=== PATIENT | male | born 1930 | race Caucasian/White ===

== ENCOUNTER 2016-07-24 15:47 | Emergency (ER) | payer MEDICARE, BC ==
[2016-07-24] MEDS ORDERED: 50% Dextrose in Water 50 ML Syringe IVPUSH ONE ×2 (15:55→17:39)
[2016-07-24] MEDS ORDERED: 50% Dextrose in Water 50 ML Syringe ONE (15:57)
[2016-07-24] MEDS ORDERED: Dextrose 5%-0.9% NaCl 1,000 ML IV SCH (16:00)
--- NOTE | 2016-07-24 16:01 | EDM.PDOC ---
ED HPI GENERAL MEDICAL PROBLEM - General Chief Complaint: Neurological Problem Stated Complaint: [facility] Time Seen by Provider: 07/24/16 15:54 Source of Information: Reports: Patient, EMS Notes Reviewed History Limitations: Reports: No Limitations - History of Present Illness INITIAL COMMENTS - FREE TEXT/NARRATIVE: 6-year-old male presents to the ED brought in by helicopter from [facility]. Apparently he was brought in as part of a stroke alert. Patient is conscious and expresses himself fairly well at this time. Blood sugar on scene apparently was 80 and he is a known insulin-dependent diabetic protect 2 diabetes control. He reports he did not eat much for dinner today. Did take his normal insulin in the morning. He states he developed sudden onset of weakness and he had to sit down while he was in a tire shop in [place]. Unclear if he had a seizure or not. He has lost control of his urinary bladder. It's unclear if anybody witnessed seizure activity. Blood sugar in the emergency part was 62. Therefore he will be given any D50 immediately IV. Onset: Today Onset Date: 07/24/16 Onset Time: 15:30 Duration: Minutes: Location: Reports: Generalized (weakness.) Quality: Reports: Same as Previous Episode Severity: Severe (has had similar previous episodes) Improves with: Reports: Other (paramedics did give him a glucose tablet and he seemed to be transiently better.) Worsens with: Reports: None Context: Reports: Other (insulin-dependent diabetic and did not eat much for dinner.). Denies: Activity, Exercise, Lifting, Sick Contact, Trauma Associated Symptoms: Reports: Confusion, Diaphoresis, Malaise, Shortness of Breath, Weakness. Denies: Chest Pain, Cough, cough w sputum, Fever/Chills, Headaches, Seizure, Syncope Treatments CASH POSTING SPECIALIST: Reports: Other (see below) (glucose tablet per oral.) - Related Data Allergies Allergy/AdvReac Type Severity Reaction Status Date / Time No Known Allergies Allergy Verified 07/24/16 15:49 Home Meds: Home Meds Omeprazole [Prilosec] 20 mg PO BIDAC 09/18/13 [History] Rivaroxaban [Xarelto] 15 mg PO DAILY 01/01/15 [History] Benzonatate 200 mg PO DAILY 06/01/15 [History] Insulin Detemir [Levemir Flextouch] 35 units INJECT BEDTIME 06/01/15 [History] Tamsulosin [Flomax] 0.4 mg PO BEDTIME 06/01/15 [History] Acetaminophen [Tylenol] 650 mg PO BID 06/20/15 [History] Furosemide 40 mg PO BID 06/20/15 [History] Insulin Aspart [Novolog Flexpen] 15 units SUBCUT TID 06/20/15 [History] Dextran 70/Hypromellose/PF [Artificial Tears Drops] 1 drop EYEBOTH TID 07/07/15 [History] Docusate Sodium/Sennosides [Senna Plus] 1 tab PO DAILY 07/07/15 [History] Potassium Chloride 20 meq PO DAILY 07/07/15 [History] Fludrocortisone [Florinef] 0.1 mg PO DAILY #30 tablet 07/11/15 [Rx] Dextromethorphan/guaiFENesin [Robitussin DM] 5 ml PO QID PRN 08/02/15 [History] Digoxin [Lanoxin] 125 mcg PO DAILY 08/02/15 [History] Ergocalciferol (Vitamin D2) [Vitamin D2] 50,000 units PO WEEKLY 08/02/15 [ History] Midodrine 2 tab PO DAILY PRN 08/02/15 [History] Past Medical History HEENT History: Reports: Hard of Hearing Other HEENT History: SITKA Cardiovascular History: Reports: Afib (currently on Xarelto for this.), High Cholesterol, Hypertension, Other (See Below) Other Cardiovascular History: congestive heart failure Respiratory History: Reports: Bronchitis, Recurrent, COPD, SOB Gastrointestinal History: Reports: GERD Genitourinary History: Reports: BPH Musculoskeletal History: Reports: Other (See Below) Other Musculoskeletal History: 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, receives cortisone injections Endocrine/Metabolic History: Reports: Diabetes, Type II Oncologic (Cancer) History: Reports: Other (See Below) 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 - Infectious Disease History Infectious Disease History: Reports: Chicken Pox - Past Surgical History HEENT Surgical History: Reports: Cataract Surgery Social & Family History - Family History Family Medical History: Noncontributory - Tobacco Use Smoking Status *Q: Never Smoker Second Hand Smoke Exposure: No - Alcohol Use Days Per Week of Alcohol Use: 0 Number of Drinks Per Day: 1 Total Drinks Per Week: 0 - Recreational Drug Use Recreational Drug Use: No - Living Situation & Occupation Living situation: Reports: , with Spouse Occupation: Retired ED ROS GENERAL - Review of Systems Review Of Systems: See Below Constitutional: Reports: Malaise, Weakness, Fatigue. Denies: Fever, Chills, Decreased Appetite, Weight Loss HEENT: Reports: Glasses, Hearing Loss, Other (vision is poor but he can still drive a vehicle. Apparently has some degree of diabetic retinopathy.) Respiratory: Reports: Shortness of Breath, Cough, Other (occasional cough nonproductive.mild COPD.). Denies: Wheezing, Pleuritic Chest Pain Cardiovascular: Reports: Blood Pressure Problem, Dyspnea on Exertion, Lightheadedness, Palpitations. Denies: Chest Pain, Claudication (chronic hypertension.), Orthopnea Endocrine: Reports: Fatigue (has chronic atrial fibrillation.), Low Glucose ( the cause is been running low apparently for the last 2 days.) GI/Abdominal: Reports: Constipation. Denies: Black Stool, Bloody Stool, Decreased Appetite, Difficulty Swallowing, Hematochezia : Reports: Frequency, Other (nocturia x3.) Musculoskeletal: Reports: Back Pain, Joint Pain (he sits neck and shoulders at times.) Skin: Reports: Bruising (bruises easy due to being on Xarelto) Psychiatric: Reports: No Symptoms Hematologic/Lymphatic: Reports: No Symptoms Immunologic: Reports: No Symptoms - Physical Exam Exam: See Below Exam Limited By: No Limitations General Appearance: Anxious, Lethargic, Mild Distress Eye Exam: Bilateral Eye: Normal Inspection, PERRL Throat/Mouth: Normal Inspection, Normal Lips, Normal Teeth, Normal Oropharynx, Other (uvula is in the midline.) Head Exam: Atraumatic, Normocephalic Neck: Normal Inspection, Limited Range of Motion. No: Carotid Bruit, Lymphadenopathy (L) Respiratory/Chest: Respiratory Distress, Decreased Breath Sounds (mild tachypnea and rest.assessed and managed to the lower 25% lung up.), Wheezing (digital expiratory wheeze.). No: Crackles, Rales Cardiovascular: No Gallop, No Murmur, No Rub, Irregularly Irregular (monitor reveals a to fibrillation in the 80s.). No: Normal Peripheral Pulses, Regular Rate, Rhythm GI/Abdominal: Other (abdomen is distended and tympanitic to percussion compatible with some degree of aerophagia. It's firm to palpation with no organomegaly or masses palpable but they'll address limits ability to palpate solid organs.) (Male) Exam: Other (holding his soaked due to loss of bladder control.) Neuro Exam (Abbreviated): Alert, Oriented, CN II-XII Intact, Normal Cognition, No Motor/Sensory Deficits, Other (he can lift all limbs off the bed. There is no ataxia. Cranial nerves 2-12 intact. No evidence of stroke.). No: Normal Gait DTR: 0: Achilles (R), Achilles (L), 1+: Bicep (R), Bicep (L), Patella (R), Patella (L) Back Exam: Normal Inspection Extremities: Normal Inspection, No Pedal Edema, Limited Range of Motion (he has decreased range of motion of both knees and hips. Lost her story changes present.) Psychiatric: Flat Affect Skin Exam: Dry, Intact, Cool EKG INTERPRETATION EKG Date: 07/24/16 Time: 16:10 Rhythm: a-fib (rate is 58-70 per minute) Rate (beats/min): 73 Benson: LAD-left axis deviation (-34) P-wave: absent QRS: other (there is abnormal R-wave progression with late transition. 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 QT) ST-T: other (mild diffuse early repolarization abnormality.) QT: prolonged (A. QT interval is mildly prolonged.) Course - Vital Signs Last Recorded V/S: Last Vital Signs Temp 36.2 C 07/24/16 15:49 Pulse 64 07/24/16 15:49 Resp 20 07/24/16 15:49 BP 110/61 07/24/16 15:49 Pulse Ox 95 07/24/16 15:58 - Orders/Labs/Meds Orders: Active Orders 24 hr Category Date Time Status Blood Glucose Check, Bedside [] ONETIME Care 07/24/16 15:58 Active Blood Glucose Check, Bedside [] ONETIME Care 07/24/16 17:00 Active Blood Glucose Check, Bedside [RC] ONETIME Care 07/24/16 18:30 Active Blood Glucose Check, Bedside [RC] ONETIME Care 07/24/16 19:00 Active EKG Documentation Completion [RC] STAT Care 07/24/16 15:58 Active Oxygen Therapy [RC] ASDIRECTED Care 07/24/16 15:58 Active Dextrose 5%-0.9% NaCl [Dextrose 5%-Normal Saline] 1,000 Med 07/24/16 16:00 Active ml IV ASDIRECTED Medication Orders Dextrose/Sodium Chloride (Dextrose 5%-Normal Saline) 1,000 mls @ 125 mls/hr IV ASDIRECTED EL Last Admin: 07/24/16 16:11 Dose: 125 mls/hr Labs: Laboratory Tests 07/24/16 07/24/16 07/24/16 Range/Units 15:53 16:00 16:00 WBC 6.44 (4.23-9.07) K/mm3 RBC 4.00 L (4.63-6.08) M/mm3 Hgb 12.6 L (13.7-17.5) gm/L Hct 38.7 L (40.1-51.0) % MCV 96.8 H (79.0-92.2) fl MCH 31.5 (25.7-32.2) pg MCHC 32.6 (32.2-35.5) g/dl RDW Std Deviation 49.4 H (35.1-43.9) fL Plt Count 250 (163-337) K/mm3 MPV 9.7 (9.4-12.3) fl Neutrophils % (Manual) 68 H (40-60) % Band Neutrophils % 2 (0-10) % Lymphocytes % (Manual) 26 (20-40) % Atypical Lymphs % 0 % Monocytes % (Manual) 1 L (2-10) % Eosinophils % (Manual) 3 (0.8-7.0) % Basophils % (Manual) 0 L (0.2-1.2) Platelet Estimate Adequate Plt Morphology Comment Normal Anisocytosis 1+ slight RBC Morph Comment Not Reportable PT (8.0-13.0) SECONDS INR Sodium 143 (136-145) mEq/L Potassium 3.6 (3.5-5.1) mEq/L Chloride 107 (98-107) mEq/L Carbon Dioxide 25 (21-32) mEq/L Anion Gap 14.6 (5-15) BUN 28 H (7-18) mg/dL Creatinine 2.2 H (0.7-1.3) mg/dL Est Cr Clr Drug Dosing 23.21 mL/min Estimated GFR (MDRD) 28 (>60) mL/min BUN/Creatinine Ratio 12.7 L (14-18) Glucose 74 L (83-115) mg/dL POC Glucose 62 L (83-110) mg/dL Hemoglobin A1c (4.50-6.20) % Calcium 8.6 (8.5-10.1) mg/dL Magnesium 2.4 (1.8-2.4) mg/dl Total Bilirubin 0.6 (0.2-1.0) mg/dL AST 12 L (15-37) U/L ALT 12 L (16-63) U/L Alkaline Phosphatase 76 (46-116) U/L CK-MB (CK-2) 1.0 (0-3.6) ng/ml Troponin I 0.049 (0.00-0.056) ng/mL C-Reactive Protein < 0.2 (<1.0) mg/dL B-Natriuretic Peptide (0-100) pg/mL Total Protein 7.3 (6.4-8.2) g/dl Albumin 3.4 (3.4-5.0) g/dl Globulin 3.9 gm/dL Albumin/Globulin Ratio 0.9 L (1-2) Urine Color (Yellow) Urine Appearance (Clear) Urine pH (5.0-8.0) Ur Specific Ponce (1.005-1.030) Urine Protein (Negative) Urine Glucose (UA) (Negative) Urine Ketones (Negative) Urine Occult Blood (Negative) Urine Nitrite (Negative) Urine Bilirubin (Negative) Urine Urobilinogen (0.2-1.0) Ur Leukocyte Esterase (Negative) Urine RBC (0-5) /hpf Urine WBC (0-5) /hpf Ur Epithelial Cells Ur Squamous Epith Cells (0-5) /hpf Urine Bacteria (FEW) /hpf Urine Mucus (FEW) /hpf Digoxin (0.9-2.0) ng/mL 07/24/16 07/24/16 07/24/16 Range/Units 16:00 16:00 16:00 WBC (4.23-9.07) K/mm3 RBC (4.63-6.08) M/mm3 Hgb (13.7-17.5) gm/L Hct (40.1-51.0) % MCV (79.0-92.2) fl MCH (25.7-32.2) pg MCHC (32.2-35.5) g/dl RDW Std Deviation (35.1-43.9) fL Plt Count (163-337) K/mm3 MPV (9.4-12.3) fl Neutrophils % (Manual) (40-60) % Band Neutrophils % (0-10) % Lymphocytes % (Manual) (20-40) % Atypical Lymphs % % Monocytes % (Manual) (2-10) % Eosinophils % (Manual) (0.8-7.0) % Basophils % (Manual) (0.2-1.2) Platelet Estimate Plt Morphology Comment Anisocytosis RBC Morph Comment PT 13.9 H (8.0-13.0) SECONDS INR 1.26 Sodium (136-145) mEq/L Potassium (3.5-5.1) mEq/L Chloride (98-107) mEq/L Carbon Dioxide (21-32) mEq/L Anion Gap (5-15) BUN (7-18) mg/dL Creatinine (0.7-1.3) mg/dL Est Cr Clr Drug Dosing mL/min Estimated GFR (MDRD) (>60) mL/min BUN/Creatinine Ratio (14-18) Glucose (83-115) mg/dL POC Glucose (83-110) mg/dL Hemoglobin A1c 6.80 H (4.50-6.20) % Calcium (8.5-10.1) mg/dL Magnesium (1.8-2.4) mg/dl Total Bilirubin (0.2-1.0) mg/dL AST (15-37) U/L ALT (16-63) U/L Alkaline Phosphatase (46-116) U/L CK-MB (CK-2) (0-3.6) ng/ml Troponin I (0.00-0.056) ng/mL C-Reactive Protein (<1.0) mg/dL B-Natriuretic Peptide 417 H (0-100) pg/mL Total Protein (6.4-8.2) g/dl Albumin (3.4-5.0) g/dl Globulin gm/dL Albumin/Globulin Ratio (1-2) Urine Color (Yellow) Urine Appearance (Clear) Urine pH (5.0-8.0) Ur Specific Ponce (1.005-1.030) Urine Protein (Negative) Urine Glucose (UA) (Negative) Urine Ketones (Negative) Urine Occult Blood (Negative) Urine Nitrite (Negative) Urine Bilirubin (Negative) Urine Urobilinogen (0.2-1.0) Ur Leukocyte Esterase (Negative) Urine RBC (0-5) /hpf Urine WBC (0-5) /hpf Ur Epithelial Cells Ur Squamous Epith Cells (0-5) /hpf Urine Bacteria (FEW) /hpf Urine Mucus (FEW) /hpf Digoxin (0.9-2.0) ng/mL 07/24/16 07/24/16 07/24/16 Range/Units 16:00 16:30 17:05 WBC (4.23-9.07) K/mm3 RBC (4.63-6.08) M/mm3 Hgb (13.7-17.5) gm/L Hct (40.1-51.0) % MCV (79.0-92.2) fl MCH (25.7-32.2) pg MCHC (32.2-35.5) g/dl RDW Std Deviation (35.1-43.9) fL Plt Count (163-337) K/mm3 MPV (9.4-12.3) fl Neutrophils % (Manual) (40-60) % Band Neutrophils % (0-10) % Lymphocytes % (Manual) (20-40) % Atypical Lymphs % % Monocytes % (Manual) (2-10) % Eosinophils % (Manual) (0.8-7.0) % Basophils % (Manual) (0.2-1.2) Platelet Estimate Plt Morphology Comment Anisocytosis RBC Morph Comment PT (8.0-13.0) SECONDS INR Sodium (136-145) mEq/L Potassium (3.5-5.1) mEq/L Chloride (98-107) mEq/L Carbon Dioxide (21-32) mEq/L Anion Gap (5-15) BUN (7-18) mg/dL Creatinine (0.7-1.3) mg/dL Est Cr Clr Drug Dosing mL/min Estimated GFR (MDRD) (>60) mL/min BUN/Creatinine Ratio (14-18) Glucose (83-115) mg/dL POC Glucose 156 H 105 (83-110) mg/dL Hemoglobin A1c (4.50-6.20) % Calcium (8.5-10.1) mg/dL Magnesium (1.8-2.4) mg/dl Total Bilirubin (0.2-1.0) mg/dL AST (15-37) U/L ALT (16-63) U/L Alkaline Phosphatase (46-116) U/L CK-MB (CK-2) (0-3.6) ng/ml Troponin I (0.00-0.056) ng/mL C-Reactive Protein (<1.0) mg/dL B-Natriuretic Peptide (0-100) pg/mL Total Protein (6.4-8.2) g/dl Albumin (3.4-5.0) g/dl Globulin gm/dL Albumin/Globulin Ratio (1-2) Urine Color (Yellow) Urine Appearance (Clear) Urine pH (5.0-8.0) Ur Specific Ponce (1.005-1.030) Urine Protein (Negative) Urine Glucose (UA) (Negative) Urine Ketones (Negative) Urine Occult Blood (Negative) Urine Nitrite (Negative) Urine Bilirubin (Negative) Urine Urobilinogen (0.2-1.0) Ur Leukocyte Esterase (Negative) Urine RBC (0-5) /hpf Urine WBC (0-5) /hpf Ur Epithelial Cells Ur Squamous Epith Cells (0-5) /hpf Urine Bacteria (FEW) /hpf Urine Mucus (FEW) /hpf Digoxin < 0.2 L (0.9-2.0) ng/mL 07/24/16 07/24/16 07/24/16 Range/Units 17:33 18:21 18:30 WBC (4.23-9.07) K/mm3 RBC (4.63-6.08) M/mm3 Hgb (13.7-17.5) gm/L Hct (40.1-51.0) % MCV (79.0-92.2) fl MCH (25.7-32.2) pg MCHC (32.2-35.5) g/dl RDW Std Deviation (35.1-43.9) fL Plt Count (163-337) K/mm3 MPV (9.4-12.3) fl Neutrophils % (Manual) (40-60) % Band Neutrophils % (0-10) % Lymphocytes % (Manual) (20-40) % Atypical Lymphs % % Monocytes % (Manual) (2-10) % Eosinophils % (Manual) (0.8-7.0) % Basophils % (Manual) (0.2-1.2) Platelet Estimate Plt Morphology Comment Anisocytosis RBC Morph Comment PT (8.0-13.0) SECONDS INR Sodium (136-145) mEq/L Potassium (3.5-5.1) mEq/L Chloride (98-107) mEq/L Carbon Dioxide (21-32) mEq/L Anion Gap (5-15) BUN (7-18) mg/dL Creatinine (0.7-1.3) mg/dL Est Cr Clr Drug Dosing mL/min Estimated GFR (MDRD) (>60) mL/min BUN/Creatinine Ratio (14-18) Glucose (83-115) mg/dL POC Glucose 92 136 H (83-110) mg/dL Hemoglobin A1c (4.50-6.20) % Calcium (8.5-10.1) mg/dL Magnesium (1.8-2.4) mg/dl Total Bilirubin (0.2-1.0) mg/dL AST (15-37) U/L ALT (16-63) U/L Alkaline Phosphatase (46-116) U/L CK-MB (CK-2) (0-3.6) ng/ml Troponin I (0.00-0.056) ng/mL C-Reactive Protein (<1.0) mg/dL B-Natriuretic Peptide (0-100) pg/mL Total Protein (6.4-8.2) g/dl Albumin (3.4-5.0) g/dl Globulin gm/dL Albumin/Globulin Ratio (1-2) Urine Color Yellow (Yellow) Urine Appearance Clear (Clear) Urine pH 6.0 (5.0-8.0) Ur Specific Ponce 1.015 (1.005-1.030) Urine Protein Negative (Negative) Urine Glucose (UA) Trace H (Negative) Urine Ketones Negative (Negative) Urine Occult Blood Negative (Negative) Urine Nitrite Negative (Negative) Urine Bilirubin Negative (Negative) Urine Urobilinogen 0.2 (0.2-1.0) Ur Leukocyte Esterase Negative (Negative) Urine RBC Not seen (0-5) /hpf Urine WBC 0-5 (0-5) /hpf Ur Epithelial Cells Not Reportable Ur Squamous Epith Cells 0-5 (0-5) /hpf Urine Bacteria Not seen (FEW) /hpf Urine Mucus Not seen (FEW) /hpf Digoxin (0.9-2.0) ng/mL 07/24/16 07/24/16 Range/Units 19:07 19:31 WBC (4.23-9.07) K/mm3 RBC (4.63-6.08) M/mm3 Hgb (13.7-17.5) gm/L Hct (40.1-51.0) % MCV (79.0-92.2) fl MCH (25.7-32.2) pg MCHC (32.2-35.5) g/dl RDW Std Deviation (35.1-43.9) fL Plt Count (163-337) K/mm3 MPV (9.4-12.3) fl Neutrophils % (Manual) (40-60) % Band Neutrophils % (0-10) % Lymphocytes % (Manual) (20-40) % Atypical Lymphs % % Monocytes % (Manual) (2-10) % Eosinophils % (Manual) (0.8-7.0) % Basophils % (Manual) (0.2-1.2) Platelet Estimate Plt Morphology Comment Anisocytosis RBC Morph Comment PT (8.0-13.0) SECONDS INR Sodium (136-145) mEq/L Potassium (3.5-5.1) mEq/L Chloride (98-107) mEq/L Carbon Dioxide (21-32) mEq/L Anion Gap (5-15) BUN (7-18) mg/dL Creatinine (0.7-1.3) mg/dL Est Cr Clr Drug Dosing mL/min Estimated GFR (MDRD) (>60) mL/min BUN/Creatinine Ratio (14-18) Glucose (83-115) mg/dL POC Glucose 109 118 H (83-110) mg/dL Hemoglobin A1c (4.50-6.20) % Calcium (8.5-10.1) mg/dL Magnesium (1.8-2.4) mg/dl Total Bilirubin (0.2-1.0) mg/dL AST (15-37) U/L ALT (16-63) U/L Alkaline Phosphatase (46-116) U/L CK-MB (CK-2) (0-3.6) ng/ml Troponin I (0.00-0.056) ng/mL C-Reactive Protein (<1.0) mg/dL B-Natriuretic Peptide (0-100) pg/mL Total Protein (6.4-8.2) g/dl Albumin (3.4-5.0) g/dl Globulin gm/dL Albumin/Globulin Ratio (1-2) Urine Color (Yellow) Urine Appearance (Clear) Urine pH (5.0-8.0) Ur Specific Ponce (1.005-1.030) Urine Protein (Negative) Urine Glucose (UA) (Negative) Urine Ketones (Negative) Urine Occult Blood (Negative) Urine Nitrite (Negative) Urine Bilirubin (Negative) Urine Urobilinogen (0.2-1.0) Ur Leukocyte Esterase (Negative) Urine RBC (0-5) /hpf Urine WBC (0-5) /hpf Ur Epithelial Cells Ur Squamous Epith Cells (0-5) /hpf Urine Bacteria (FEW) /hpf Urine Mucus (FEW) /hpf Digoxin (0.9-2.0) ng/mL Meds: Medications Generic Name Dose Route Start Last Admin Trade Name Freq PRN Reason Stop Dose Admin Dextrose/Sodium Chloride 1,000 mls @ 125 mls/hr 07/24/16 16:00 07/24/16 16:11 Dextrose 5%-Normal Saline IV 125 mls/hr ASDIRECTED EL Administration Discontinued Medications Generic Name Dose Route Start Last Admin Trade Name Freq PRN Reason Stop Dose Admin Dextrose/Water 50 ml 07/24/16 15:55 07/24/16 15:59 Dextrose 50% In Water IVPUSH 07/24/16 15:56 50 ml ONETIME ONE Administration Dextrose/Water Confirm 07/24/16 15:57 07/24/16 16:11 Dextrose 50% In Water Administered 07/24/16 15:58 Not Given Dose 50 ml .ROUTE .STK-MED ONE Dextrose/Water 50 ml 07/24/16 17:39 07/24/16 17:46 Dextrose 50% In Water IVPUSH 07/24/16 17:40 50 ml ONETIME ONE Administration Furosemide 40 mg 07/24/16 17:54 07/24/16 18:11 Lasix IVPUSH 07/24/16 17:55 40 mg NOW ONE Administration - Radiology Interpretation Free Text/Narrative:: 86-year-old male brought to the ED per helicopter from [facility]. Apparently he collapsed while in the tire shop at [facility]. It's unclear whether or not he had a seizure. He presents with incontinence of urine and apparently was quite confused on scene. His blood sugar was found to be 80 and he received a glucose tablet per oral. Blood glucose in the ED is only 68. He was therefore given an amp of D50 IV with improvement in his cognitive function nearly immediately. His blood sugars apparently been running low the last few days he's been using the same dosage of insulin. No recent weight loss. He reports he didn't eat much for dinner although his claims that he did in terms of scalp fails with porkchops. CT of the brain will be carried out with routine labs to include BMP and cardiac markers. Sugars will be checked q. hourly. Current IV will be D5 normal saline at 100 mils per hour. - Re-Assessments/Exams Free Text/Narrative Re-Assessment/Exam: 07/24/16 16:21 CT of his brain reveals diffuse small vessel ischemic changes in the basal ganglia and and periventricular white matter. 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 No other abnormal parenchymal densities are seen no evidence of intracranial hemorrhage no midline shift or mass effect fever mild mucosal thickening is appreciated within both maxillary sinuses. ECG reveals atrial fibrillation with a well- controlled rate at 58-78 per minute. There is a left axis deviation -34 abnormal R wave progression with late transition. QT interval is mildly prolonged. No signs of ischemia. 07/24/16 16:30: blood sugar is 156. Next blood sugars do at 1700 hours.I phoned [facility] and he is currently on Levemir 35 units first thing in the morning. NovoLog 37 units subcutaneously twice a day. He now admits that he did not take his NovoLog as prescribed this morning to get a Instead. This seems to have precipitated acute hypoglycemic event. 07/24/16 17:00;; Blood sugar was 105. He is not hungry. Will get him tray anyway. Glycosylated protein returned at 6.7. 07/24/16 17:30; Blood sugar is now 92. Will give another amp. of D50% IV. labs reveal a white count of 6.4 460% neutrophils and 2% bands. Hemoglobin is 12.6 hematocrit is 38.7 is a 250,000. PT is 13.9 INR is 1.26. Sodium was 143 potassium 3.6 chloride 17 bicarbonate 25 anion gap is 14.6 BUN 28 creatinine 2.2 EGFR is only 28 which is stage IV renal disease. Glucose in the lab was 74. Hemoglobin A1c was 6.8 BNP 417 Digoxin is less than 0.2 suggesting is no longer on this medication.his IV will be discontinued since his BNP is over 417 will be easily volume overloaded. We'll give him Lasix 40 mg IV.Blood pressures currently up to 98/71. Heart rate is 98 per minute. 07/24/16 18:53 Blood sugar at 1830 hours was 136. 07/24/16 19:06 Blood sugar now is 109. Therefore he is still dropping and still has too much insulin on board. We'll try get him to drink more carbohydrate fluids and pressor dependent butter and toast. Blood sugar will be repeated in a half an hour. If it continues to drop and he needs a third dose of dextrose then he should likely stay in hospital overnight. 07/24/16 19:15care will be transferred to Dr. Barber in is his change of shift. Hopefully we can stabilize his blood sugars and allow him to go home as he is not keen to stay in the hospital. Next blood sugars due at 8:00. He is to cut back on his current dosages of insulin. He reports blood sugar this morning was 147. By the sounds of things she's been taking Levemir 30 units in the morning. NovoLog 20 units at bedtime.his glycosylated protein is 6.7 and perhaps glucose control is a little bit too stringent with risk of hypoglycemic events.Will suggest cutting back his Levemir to 25 units daily. NovoLog to 25 units subcutaneous daily at bedtime although not tonight. 07/24/16 19:35blood sugar this time is now 118. It appears that it is stabilized. He does not want to stay in the hospital therefore I will discharge him to home. He will check his blood sugar every hour until bedtime and take no insulin tonight at bedtime. He is to reduce his Levamir and NovoLog as above. Departure - Departure Time of Disposition: 19:35 Disposition: Home, Self-Care 01 Condition: fair (insulin reaction) Clinical Impression: Hypoglycemia Insulin adverse reaction Qualifiers: Encounter type: initial encounter Qualified Code(s): T38.3X5A - Adverse effect of insulin and oral hypoglycemic [antidiabetic] drugs, initial encounter - Discharge Information Referrals: Roney Yadav MD [Primary Care Provider] - Forms: ED Department Discharge Additional Instructions: evaluation in the emergency department today view to a hypoglycemic reaction that was quite severe. It is likely that your blood sugar dropped below 30 and that you may have suffered a seizure due to low blood sugar. Blood sugar was 62 upon arrival in the emergency department. You have been given glucose supplement by mouth by paramedics. His suspect that you had a seizure because he lost control of her bladder doing during the severe hypoglycemic event. Blood sugar was difficult to keep up by your in the emergency room and he required frequent doses of IV dextrose to maintain your blood sugar greater than 109. Suggest no insulin tonight at bedtime. In suggest cutting back to Levemir to 25 units subcutaneously daily and NovoLog 25 units daily. This will either blood sugar to rise a little bit in your bloodstream and prevent severe hypoglycemic reaction. Her glycosylated protein today was 6.7 which looks back over the last 3 months. This is an excellent number but its a bit too low for a fell your age. The risk of hypoglycemia outweighs the risks of the occasional high blood sugar.take her blood sugar every hour when she got home until bedtime to make sure that it is not going lower. Drops below 90 then of course you need to take in the eye sugar source such as orange juice etc. Followup with her personal in 2 weeks time for reevaluation of how you're doing with your blood sugars. - My Orders Last 24 Hours: My Active Orders 07/24/16 15:58 Blood Glucose Check, Bedside [RC] ONETIME EKG Documentation Completion [RC] STAT Oxygen Therapy [RC] ASDIRECTED 07/24/16 16:00 Dextrose 5%-0.9% NaCl [Dextrose 5%-Normal Saline] 1,000 ml IV ASDIRECTED 07/24/16 17:00 Blood Glucose Check, Bedside [RC] ONETIME 07/24/16 18:30 Blood Glucose Check, Bedside [RC] ONETIME 07/24/16 19:00 Blood Glucose Check, Bedside [RC] ONETIME - Assessment/Plan Last 24 Hours: My Active Orders 07/24/16 15:58 Blood Glucose Check, Bedside [RC] ONETIME EKG Documentation Completion [RC] STAT Oxygen Therapy [RC] ASDIRECTED 07/24/16 16:00 Dextrose 5%-0.9% NaCl [Dextrose 5%-Normal Saline] 1,000 ml IV ASDIRECTED 07/24/16 17:00 Blood Glucose Check, Bedside [RC] ONETIME 07/24/16 18:30 Blood Glucose Check, Bedside [RC] ONETIME 07/24/16 19:00 Blood Glucose Check, Bedside [RC] ONETIME
--- NOTE | 2016-07-24 16:24 | CT ---
Head CT Technique: Multiple axial sections through the brain were obtained. Intravenous contrast was not utilized. Comparison: Previous head CT study of 02/16/15 is available as well as MRI brain of 06/02/15 is available. Findings: Ventricles along with basal cisterns and sulci over the convexities are moderately prominent. 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 No other abnormal parenchymal densities are seen. No evidence of intracranial hemorrhage. No midline shift or mass effect is seen. Mild atherosclerotic calcification is seen within the carotid siphon. Minimal atherosclerotic calcification is noted within the vertebral vessels. Bone window settings were reviewed which shows no discrete calvarial abnormality. Mild mucosal thickening is noted within both maxillary sinuses. Mucosal thickening is improved from prior MRI. Impression: 1. Senescent change as noted above. No acute intracranial abnormality is seen. Other than improved sinus disease from prior MRI, no significant interval change is appreciated. Diagnostic code #2
[2016-07-24] MEDS ORDERED: Furosemide 40 MG/4 ML VIAL IVPUSH ONE (17:54)
[2016-07-25 00:27] VITALS: BP 143/70
== END 2016-07-24 19:50 | disposition home or self-care (01) ==
LOC: JD.ED 15:47
DX: E11.649 Type 2 diabetes mellitus with hypoglycemia without coma (principal); T38.3X5A Adverse effect of insulin and oral hypoglycemic [antidiabetic] drugs, initial encounter; R53.1 Weakness; I48.91 Unspecified atrial fibrillation; E11.319 Type 2 diabetes mellitus with unspecified diabetic retinopathy without macular edema; E78.00 Pure hypercholesterolemia, unspecified; K21.9 Gastro-esophageal reflux disease without esophagitis; J44.9 Chronic obstructive pulmonary disease, unspecified; Z79.4 Long term (current) use of insulin; Z79.899 Other long term (current) drug therapy; Z98.49 Cataract extraction status, unspecified eye; R06.02 Shortness of breath; R53.81 Other malaise
CPT/HCPCS: 36415; 70450; 80053; 80162; 81001; 82553; 82962; 83036; 83735; 83880; 84484; 85025; 85610; 86140; 93005; 96361; 96374; 96375; 96376; 99285; J1940; J7042; J7060